=== PATIENT | female | born 1990 | race Caucasian/White ===

== ENCOUNTER 2016-10-07 13:34 | Emergency (ER) | payer OTHER ==
[2016-10-07 13:39] VITALS: BP 112/84; PULSE 78; TEMP 98; BMI 31.4
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
[2016-10-07] MEDS ORDERED: IBUPROFEN 600 MG TABLET (FP) PO ONE ×2 (15:48→15:53)
== END 2016-10-07 15:56 | disposition home or self-care (01) ==
LOC: JERFT 13:34
DX: S09.8XXA Other specified injuries of head, initial encounter (principal); Y04.2XXA Assault by strike against or bumped into by another person, initial encounter; Y93.89 Activity, other specified; Y92.118 Other place in children's home and orphanage as the place of occurrence of the external cause
CPT/HCPCS: 70486-TC; 84703; 99281-25

== ENCOUNTER 2016-12-08 17:39 | Emergency (ER) | payer OTHER ==
[2016-12-08] MEDS ORDERED: TETANUS AND DIPHTHERIA TOXOID 0.5 ML DISP.SYRIN IM ONE (17:47)
[2016-12-08 17:48] VITALS: BP 120/61; PULSE 79; TEMP 98; BMI 31.1
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
[2016-12-08] MEDS ORDERED: DIPHTH,PERTUSS(ACELL),TET 0.5 ML DISP.SYRIN IM ONE (18:25)
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
== END 2016-12-08 18:54 | disposition home or self-care (01) ==
LOC: JERFT 17:39
PROC: 3E0234Z Introduction of Serum, Toxoid and Vaccine into Muscle, Percutaneous Approach (ICD-10-PCS; principal; 2016-12-08)
DX: S50.872A Other superficial bite of left forearm, initial encounter (principal); S61.210A Laceration without foreign body of right index finger without damage to nail, initial encounter; Y04.1XXA Assault by human bite, initial encounter; X99.0XXA Assault by sharp glass, initial encounter; Y93.89 Activity, other specified; Y92.118 Other place in children's home and orphanage as the place of occurrence of the external cause; Y99.0 Civilian activity done for income or pay
CPT/HCPCS: 90471; 90715; 99281-25

== ENCOUNTER 2017-04-08 20:30 | Emergency (ER) | payer OTHER ==
[2017-04-08 20:35] VITALS: BP 122/68; PULSE 66; TEMP 99.2; BMI 31.1
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
== END 2017-04-08 22:57 | disposition home or self-care (01) ==
LOC: JERFT 20:30
PROC: 2W3EX1Z Immobilization of Right Hand using Splint (ICD-10-PCS; principal; 2017-04-08)
DX: S60.221A Contusion of right hand, initial encounter (principal); W20.8XXA Other cause of strike by thrown, projected or falling object, initial encounter; Y93.89 Activity, other specified; Y92.9 Unspecified place or not applicable; Y99.0 Civilian activity done for income or pay
CPT/HCPCS: 73130-TC-RT; 84703; 99281-25

== ENCOUNTER 2017-04-14 16:11 | Emergency (ER) | payer OTHER ==
[2017-04-14 16:17] VITALS: BP 113/58; PULSE 71; TEMP 98.4; BMI 31.1
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
[2017-04-14] MEDS ORDERED: IBUPROFEN 600 MG TABLET (FP) PO ONE ×2 (17:31→17:36)
[2017-04-14] MEDS ORDERED: METOCLOPRAMIDE HCL 10 MG TABLET (FP) PO ONE ×2 (17:32→17:36)
[2017-04-14] MEDS ORDERED: ACETAMINOPHEN 325 MG TABLET (FP) PO ONE (18:16)
[2017-04-14] MEDS ORDERED: ACETAMINOPHEN 325 MG TABLET (FP) ONE (18:22)
[2017-04-14] MEDS: KETOROLAC TROMETHAMINE 30 MG/1 ML VIAL IM ONE ×2 (19:05→19:11)
== END 2017-04-14 19:10 | disposition home or self-care (01) ==
LOC: JER 16:11
DX: S06.0X0A Concussion without loss of consciousness, initial encounter (principal); G44.301 Post-traumatic headache, unspecified, intractable; Y04.2XXA Assault by strike against or bumped into by another person, initial encounter; Y93.F9 Activity, other caregiving; Y92.118 Other place in children's home and orphanage as the place of occurrence of the external cause; Y99.0 Civilian activity done for income or pay; Y07.59 Other non-family member, perpetrator of maltreatment and neglect
CPT/HCPCS: 99282-25